=== PATIENT | female | born 1975 | race Caucasian/White ===

== ENCOUNTER 2017-10-21 12:38 | Day surgery (SDC) | payer BC ==
[2017-10-21 12:59] LABS: Specific Gravity 1.025 (1.005-1.030)
[2017-10-21] MEDS ORDERED: Ringers Lactate 1,000 ML IV ONE ×2 (13:21→16:22)
[2017-10-21] MEDS: CEFAZOLIN/SWI 2gm 2 GM/20 ML SYR IV SCH ×2 (14:47→15:01)
[2017-10-21] MEDS ORDERED: PROPOFOL 200 MG/20 ML VIAL IV ONE (14:48)
[2017-10-21] MEDS ORDERED: FENTANYL CITR 100 MCG/2 ML ONE (14:48)
[2017-10-21] MEDS ORDERED: ROCURONIUM 50 MG/5 ML VIAL IV ONE (14:48)
[2017-10-21] MEDS ORDERED: DEXAMETHASONE 10 MG/ML VIAL ONE (14:48)
[2017-10-21] MEDS ORDERED: KETOROLAC 30 MG/ML INJ ONE ×2 (14:49→16:38)
[2017-10-21] MEDS ORDERED: MIDAZOLAM HCL 2 MG/2 ML INJ ONE (14:49)
[2017-10-21] MEDS ORDERED: LIDOCAINE 2% MPF 5 ML VIAL ONE (14:49)
[2017-10-21] MEDS ORDERED: ONDANSETRON 4 MG/2 ML VIAL ONE (14:49)
[2017-10-21] MEDS ORDERED: GLYCOPYRROLATE 0.2 MG/ML SYR ONE (16:38)
[2017-10-21] MEDS ORDERED: NEOSTIGMINE 1 MG/ML -5 ML SYRINGE ONE (16:38)
[2017-10-21] MEDS: MEPERIDINE HCL 25 MG/0.5 ML ONE ×5 (17:18→17:33)
[2017-10-21] MEDS: MORPHINE 4 MG/ML SYR ONE ×4 (17:38→17:58)
[2017-10-21 17:48] VITALS: TEMP 97.8
[2017-10-21 18:49] VITALS: BP 113/67; O2SAT 97
[2017-10-21] MEDS ORDERED: HYDROCODONE/APAP 5/325 MG TAB ONE (18:59)
--- NOTE | 2017-10-22 04:04 | OP ---
Date of Procedure: 10/21/2017 Surgeon: Keturah Jones MD [employer] Knitter: Skylar Pineda. Preoperative Diagnoses: Menorrhagia, AUB-O, dysmenorrhea. Postoperative Diagnoses: Menorrhagia, AUB-O, dysmenorrhea, and dense bilateral ovarian and bilateral tubo-ovarian adhesions. Procedures Performed: 1.Hysteroscopy endometrial ablation. 2.Diagnostic laparoscopy, bilateral salpingectomy, and lysis of bilateral ovarian adhesions. Anesthesia: General. Estimated Blood Loss: Minimal. Specimens: No specimens. Complications: No complications. Drains: No drains. Condition: The patient's condition is stable. Indications: The patient is a 42-year-old patient with heavy menstrual bleeding. She also had sever e dysmenorrhea debilitating. She has been worked up with a transvaginal ultrasound. No adnexal mass es were noted. However, endometrial sampling needed to be performed and this was done, there was no evidence of atypia or malignancy. There was no clinical evidence of PID as well. So we discussed ab out the options of an IUD versus Depot medroxyprogesterone acetate injections for medical management versus an endometrial ablation with diagnostic laparoscopy and if endometriosis was visualized then i t would be excised. After discussing the benefits and risks of each procedure and then we proceeded to consent her for hysteroscopy with ablation and diagnostic laparoscopy. After consent, the patient was brought to the hospital. After re-consenting her, she was taken back to the OR, placed in a sup ine fashion on the operating table. After 2 g of Ancef was given, the patient was taken to the OR. General anesthesia was given. Placed in a dorsal lithotomy position using Sunday stirrups. Pelvic ex am was performed. Uterus was found to be retroflexed. No adnexal masses noted and uterus mobile. Abdomen, vulva, vagina, and perineum were prepped and draped in a sterile fashion. Oneill was placed to drain the bladder and attached to a drainage bag. The cervix was exposed with a bivalve speculum. Anterior lip was grasped with 2 Allis clamps and direct hysteroscopy was performed with HTA sheath into the uterine cavity. Cavity was empty, however, filled with lots of blood clots as the patient w as bleeding heavy today. Uterus was cleaned out as well as possible then the anterior Allis clipped onto the HTA sheath. Posterior fornix tucked with 2 Ray-Tecs. The cavity integrity test was done, w hich she passed and ablation cycle was started and it was performed for the entire 10 minutes. Howev er, there were interruptions due to [QAMARKER], most likely due to the amount of tissue that she had from which she was bleeding. All this was cleared by pinching the outflow tubing from the patient an d I was able to complete the ablation cycle without any problems. There were no leaks and the Ray-Te cs did dry. After the complete cycle, there was an additional cooling cycle besides a normal 1-1/2 m inutes cycle, so there was another 1-1/2 minutes once ablated as indicated by the machine then, the s lorie was pulled out. After this was done, there was a diagnostic hysteroscopy. The cavity was visu alized. There was a good ablation effect, however, in the uterine cavity, there was a clot that was also cauterized with the hot water. This was cleaned out as well as possible scope removed. Diagnos tic VCare was placed and fixed in place. This area was then draped. A 1 cm infraumbilical incision was made with a scalpel using the open laparoscopy technique. Fascia was incised, tagged with two 0 Vicryl sutures and peritoneal entry was bluntly with the help of finge r and S retractor was placed. The Linda was introduced. Site of entry was checked and it was unrem arkable. Upper abdominal surfaces including the liver perihepatic area all unremarkable. No adhesio ns. Omentum unremarkable. The patient was placed in -fuller. A 5-mm suprapubic and left lower quadr ant ports were placed under direct vision. The survey of the pelvic cavity was conducted in a system atic and thorough fashion; and posterior peritoneum, posterior cul-de-sac, bilateral uterosacral liga ments were all inspected thoroughly on the left and the right in the center. Then, anterior cul-de-s ac was well inspected and both broad ligaments and the bladder peritoneum. There was no evidence of any endometriosis or scar tissue. However, from the ovaries, there were dense cord like adhesions, 3 on the left and ovarian adhesions to the sidewall were also visualized and the tube was also citrus fruit colorer d to the sidewall and to the ovary. All these adhesions were taken down sharply with the help of sci ssors. Then, the tubal adhesions were taken down as well with the help of the blunt-tipped LigaSure. Once the ovary was freed up from the adhesions of the tube and the lateral wall in the paracolic pe ritoneum. Then salpingectomy was performed with a blunt tip LigaSure. The mesosalpinx was opened up . The fimbriated end was cauterized and cut from its attachment laterally to the mesosalpinx. Then, this dissection was carried along the mesosalpinx to the area of the tubal ligation on the left side . Once the distal part was detached, the proximal part was also taken down and removed and left in t he anterior cul-de-sac for a retrieval later. In a similar fashion, the periovarian adhesions and tubal adhesions were taken down with the help of sharp scissors and the LigaSure. There were 2 adhesions that were dense. There was a third one that completely densely attached the ovary to the sidewall immediately lateral to it. However, this was not pulling any excessive tension on the ovarian capsule, so I presume that this probably is not caus ing any of her pain, so left this in place and then take the other adhesions down with sharp dissecti on. Once the tubal adhesions were also taken down with the help of the LigaSure, then the mesosalpin x was cut starting at the fimbriated end; and it was resected at the level of the tubal ligation then , the proximal part was taken down with the LigaSure as well. All the specimens were pulled out thro ugh the umbilical port without use of a back. Thorough irrigation and suction were performed. There was excellent hemostasis. One of the adhesions of the left ovary was the posterior cul-de-sac in th e posterior aspect from the peritoneum covering the left pararectal space. This adhesion was also ta yasmin down. There were no adhesions present other than one on the right side as dictated, which was no t creating any tension. So, after thorough irrigation and suction were performed, pictures were take n. The scope was pulled out. The specimens were retrieved first and sent to permanent pathology. A ll the trocars were removed under direct vision. The gas was desufflated. Fascia at the umbilicus w as closed with the help of 0 Vicryl in a [id number] fashion. Subcutaneous tissues were brought together with a simple 0 Vicryl stitch. All skin incisions were closed with the help of kalyan. VC are and Oneill were removed. Instrument, needle, and sponge counts were done and were correct at the end of the case. The patient tolerated the procedure well. She will follow up with me in 1 week . MEI Voice ID: [id number] Report ID: [id number]
== END 2017-10-21 18:59 | disposition home or self-care (01) ==
LOC: OR 12:38
PROVIDERS: ATTEND Obstetrics & Gynecology
PROC: 0UT74ZZ Resection of Bilateral Fallopian Tubes, Percutaneous Endoscopic Approach (ICD-10-PCS; 2017-10-21)
PROC: 0U5B8ZZ Destruction of Endometrium, Via Natural or Artificial Opening Endoscopic (ICD-10-PCS; principal; 2017-10-21 13:15)
DX: N92.0 Excessive and frequent menstruation with regular cycle (principal); N94.6 Dysmenorrhea, unspecified; N73.6 Female pelvic peritoneal adhesions (postinfective); N83.8 Other noninflammatory disorders of ovary, fallopian tube and broad ligament; F17.200 Nicotine dependence, unspecified, uncomplicated; E66.9 Obesity, unspecified
CPT/HCPCS: 81025; 88305; J0690; J1100; J2175; J2250; J2405; J2710; J3010